=== PATIENT | male | born 1965 | race Caucasian/White ===

== ENCOUNTER 2018-12-18 07:20 | Day surgery (SDC) | payer MEDICAID ==
[2018-12-16 14:50] LABS: Basophils # (auto) 0.1 uL; Monocytes # (auto) 0.6 uL
[2018-12-16 14:52] LABS: Eosinophils # (auto) 0.2 uL; Eosinophils % (auto) 2.8 % (0.0-7.0); Hematocrit 52.5 % (41.0-53.0); Hemoglobin 17.5 g/dL (13.5-17.5); Lymphocytes # (auto) 2.9 uL; Lymphocytes % (auto) 33.3 % (10.0-50.0); Mean Corpuscular Hemoglobin 30.9 pg (28.0-32.0); Mean Corpuscular Hgb Conc. 33.4 g/dL (32.0-36.0); Mean Corpuscular Volume 92.6 fL (80.0-100.0); Monocytes % (auto) 6.6 % (0.0-12.0); Neutrophils # (auto) 4.8 uL; Neutrophils % (auto) 56.3 % (37.0-80.0); Nucleated Red Blood Cells % 0.2 %; Platelet Count (auto) 168 10^3/uL (140-450); Red Blood Cells 5.67 10^6/uL (4.5-5.90); Red Cell Distribution Width 14.2 % (11.8-14.3); White Blood Cell 8.6 10^3/uL (4.4-10.8)
[2018-12-16 15:09] LABS: INR < 0.93 (0.9-1.15); Partial Thromboplastin Time 24.9 sec (23.64-32.05)
[2018-12-16 16:18] LABS: BUN/Creatinine Ratio 13.5; Bilirubin, Total 0.4 mg/dL (0.2-1.0); Calcium 8.6 mg/dL (8.5-10.1); Total Protein 7.4 g/dL (6.4-8.2)
[2018-12-16 16:19] LABS: Albumin 3.9 g/dL (3.4-5.0)
[2018-12-16 16:45] LABS: Urine Bacteria NONE SEEN /hpf (None Seen); Urine Blood Negative /uL (Negative); Urine Specific Gravity 1.021 (1.001-1.035); Urine WBC <1 /hpf (0 - 3)
[~2018-12-18] VITALS: Ht 180.3 cm; Wt 74.8 kg
[~2018-12-18 07:20] MED LIST: CHOL1TAB16 PO; GABA400C11 PO
[2018-12-18] MEDS ORDERED: ceFAZolin 1GM/50ML 50 ML IV ONE (09:10)
[2018-12-18] MEDS ORDERED: HYDROmorphone HCL 2 MG/ML VL IV PRN (09:30)
[2018-12-18] MEDS ORDERED: METOCLOPRAMIDE HCL 5MG/ml INJ 2ml VIAL IV ONE (09:30)
[2018-12-18] MEDS ORDERED: CLINDAMYCIN 600MG IV 50 ML IV ONE (09:33)
[2018-12-18] MEDS ORDERED: PROPOFOL 10 MG/ML 20 ML IV ONE (09:50)
[2018-12-18] MEDS ORDERED: SODIUM CHLORIDE LOCK 10 ML ONE (09:50)
[2018-12-18] MEDS ORDERED: MIDAZOLAM HCL 1MG/1ML-2 ML VIAL ONE (09:50)
[2018-12-18] MEDS ORDERED: ONDANSETRON HCL 4 MG/2 ML VIAL ONE (09:50)
[2018-12-18] MEDS ORDERED: fentaNYL CITRATE 100 MCG/2 ML VL ONE (09:50)
[2018-12-18] MEDS ORDERED: ROPIVACAINE 0.5% (5MG/ML) 20ML AMPULE IJ ONE (10:30)
[2018-12-18 11:45] VITALS: BP 140/83
== END 2018-12-18 11:52 | disposition home or self-care (01) ==
LOC: SUR 07:20
PROVIDERS: ATTEND Podiatrist Foot & Ankle Surgery
DX: M20.42 Other hammer toe(s) (acquired), left foot (principal); L84 Corns and callosities; M20.5X2 Other deformities of toe(s) (acquired), left foot; G40.909 Epilepsy, unspecified, not intractable, without status epilepticus; Z88.0 Allergy status to penicillin; Z88.8 Allergy status to other drugs, medicaments and biological substances; Z79.899 Other long term (current) drug therapy; Z98.890 Other specified postprocedural states
CPT/HCPCS: 28285; 36415; 80053; 81001; 85025; 85610; 85730; J0690; J2250; J2405; J2704; J2795; J3010; J3490; L3260